=== PATIENT | male | born 1985 | race Caucasian/White ===

== ENCOUNTER 2023-05-31 18:59 | Inpatient (IN) | payer BC ==
[~2023-05-31] VITALS: Ht 180.3 cm; Wt 99.8 kg
[2023-05-31] MEDS ORDERED: NS 1,000 ML IV ONE (19:40)
[2023-05-31 20:01] LABS: WHITE BLOOD COUNT 20.3 10^3/uL (4.0-10.0)
[2023-05-31 20:02] LABS: BASO # 0.1 10^3/uL (0.0-0.2); BASO % 0.2 % (0.0-1.0); CK-MB VALUE MASS < 1.0 NG/ML (<3.6); EOS # 0.1 10^3/uL (0.0-0.5); EOS % 0.2 % (0.0-3.0); HEMOGLOBIN 10.3 g/dl (13.5-17.5); LYMPH # 1.2 10^3/uL (1.5-5.0); LYMPH % 6.1 % (24.0-44.0); MEAN CORPUSCULAR HEMOGLOBIN 31.9 pg (27.0-33.0); MEAN CORPUSCULAR HGB CONC 32.2 g/dl (32.0-36.5); MEAN CORPUSCULAR VOLUME 99.1 fl (80.0-96.0); MONO # 0.8 10^3/uL (0.0-0.8); MONO % 3.8 % (2.0-8.0); NEUTROPHILS % 88.9 % (36.0-66.0); PLATELET COUNT, AUTOMATED 231 10^3/uL (150-450); RED BLOOD COUNT 3.23 10^6/uL (4.30-6.10)
[2023-05-31 20:04] LABS: ALBUMIN 2.8 G/DL (3.2-5.2); ALKALINE PHOSPHATASE 127 U/L (46-116); ALT/SGPT 16 U/L (7.0-40); AST/SGOT 46 U/L (<34); BILIRUBIN,DIRECT 1.1 MG/DL (<0.4); BILIRUBIN,TOTAL 1.8 MG/DL (0.3-1.2); BLOOD UREA NITROGEN 20 MG/DL (9-23); CALCIUM LEVEL 8.2 MG/DL (8.5-10.1); CARBON DIOXIDE LEVEL 19 MMOL/L (20-31); CHLORIDE LEVEL 108 MMOL/L (98-107); CPK CREATINE PHOSPHOKINASE 35 U/L (46-171); CREATININE FOR GFR 0.74 MG/DL (0.70-1.30); GLOMERULAR FILTRATION RATE > 60.0 (>60); GLUCOSE, FASTING 162 MG/DL (60-100); MB/CK RELATIVE INDEX 2.85 (< OR =4); POTASSIUM SERUM 3.6 MMOL/L (3.5-5.1); SODIUM LEVEL 140 MMOL/L (136-145); TOTAL PROTEIN 5.6 G/DL (5.7-8.2)
[2023-05-31 20:06] LABS: THYROID STIMULATING HORMONE 1.225 uIU/ML (0.55-4.78)
[2023-05-31] MEDS ORDERED: THERTAB52 PO (20:08)
[2023-05-31 20:10] LABS: INR 1.93; PROTHROMBIN TIME 21.4 SECONDS (12.5-14.5)
[2023-05-31 20:11] LABS: PROCALCITONIN 1.12 ng/ml
[2023-05-31] MEDS ORDERED: ISOVUE-370 76% 100ML VIAL As Ordered ONE (20:12)
[2023-05-31 20:37] LABS: ABG BASE EXCESS -5.7 (-2.0-2.0); ABG HCO3 18.9 MMOL/L (22.0-26.0); ABG O2 SATURATION 94.7 % (95.0-99.0); ABG PARTIAL PRESSURE O2 80.9 mmHg (75.0-100.0); ABG STANDARD HCO3 19.7 MMOL/L. (22.0-26.0); ABG pH (ARTERIAL) 7.363 UNITS (7.350-7.450)
[2023-05-31 20:57] LABS: CK-MB VALUE MASS < 1.0 NG/ML (<3.6)
[2023-05-31 20:59] LABS: CPK CREATINE PHOSPHOKINASE 32 U/L (46-171); MB/CK RELATIVE INDEX 3.12 (< OR =4)
[2023-05-31] MEDS: NS 1,000 ML IV ONE (21:12)
[2023-05-31] MEDS: cefTRIAXone SOD 1 GM in D5W MINI-BAG PLUS 50 ML IV ONE (21:12)
[2023-05-31] MEDS: AZITHROMYCIN INJ 500 MG, VIAL MATE ADAPTER 1 EACH in NS 250 ML IV ONE (21:47)
[2023-05-31] MEDS ORDERED: HOME MED LIST COMPLETE! XX SCH (22:00)
[2023-05-31] MEDS ORDERED: DEXTROSE 50% 50ML SYRINGE IV PRN (23:15)
[2023-05-31] MEDS ORDERED: GLUCAGON INJ 1MG VIAL SC PRN (23:15)
[2023-05-31] MEDS ORDERED: GLUCOSE 4GM CHEW TABLET PO PRN (23:15)
[2023-05-31] MEDS: VANCOMYCIN HCL 1,000 MG, VIAL MATE ADAPTER 1 EACH in D5W 250 ML IV ONE (23:23)
[2023-05-31] MEDS: INSULIN LISPRO (NovoLOG) PER UNIT SC SCH (23:32)
[2023-05-31] MEDS: ALBUTEROL SULFATE 2.5MG/0.5ML INH NEB SOLN NEB SCH (23:46)
[2023-06-01] VITALS (24 sets, daily range): BP systolic 97–148; BP diastolic 49–96; TEMP 96.9–99.4; O2SAT 36–100
[2023-06-01] MEDS: methylPREDNISolone 1,000 MG, VIAL MATE ADAPTER 1 EACH in NS 250 ML IV SCH (01:01)
[2023-06-01 05:57] LABS: INR 1.78; PROTHROMBIN TIME 20.1 SECONDS (12.5-14.5)
[2023-06-01 06:14] LABS: BASO % 0.3 % (0.0-1.0); EOS % 0.1 % (0.0-3.0); HEMATOCRIT 32.2 % (42.0-52.0); HEMOGLOBIN 10.3 g/dl (13.5-17.5); MEAN CORPUSCULAR HEMOGLOBIN 32.1 pg (27.0-33.0); MEAN CORPUSCULAR VOLUME 100.3 fl (80.0-96.0); MONO % 1.7 % (2.0-8.0); NEUTROPHILS % 92.4 % (36.0-66.0); PLATELET COUNT, AUTOMATED 268 10^3/uL (150-450); RED BLOOD COUNT 3.21 10^6/uL (4.30-6.10); WHITE BLOOD COUNT 21.4 10^3/uL (4.0-10.0)
[2023-06-01 06:15] LABS: BASO # 0.1 10^3/uL (0.0-0.2); LYMPH # 0.9 10^3/uL (1.5-5.0); MONO # 0.4 10^3/uL (0.0-0.8); NEUTROPHILS # 19.8 10^3/uL (1.5-8.5)
[2023-06-01 06:20] LABS: ALBUMIN 2.8 G/DL (3.2-5.2); ALKALINE PHOSPHATASE 131 U/L (46-116); ALT/SGPT 15 U/L (7.0-40); AST/SGOT 52 U/L (<34); BILIRUBIN,TOTAL 1.6 MG/DL (0.3-1.2); BLOOD UREA NITROGEN 18 MG/DL (9-23); CARBON DIOXIDE LEVEL 22 MMOL/L (20-31); CHLORIDE LEVEL 110 MMOL/L (98-107); CREATININE FOR GFR 0.71 MG/DL (0.70-1.30); GLOMERULAR FILTRATION RATE > 60.0 (>60); GLUCOSE, FASTING 129 MG/DL (60-100); MAGNESIUM LEVEL 1.8 MG/DL (1.8-2.4); PHOSPHORUS LEVEL 4.1 MG/DL (2.5-4.9); POTASSIUM SERUM 4.5 MMOL/L (3.5-5.1); SODIUM LEVEL 142 MMOL/L (136-145); TOTAL PROTEIN 5.5 G/DL (5.7-8.2)
[2023-06-01 06:27] LABS: ABG BASE EXCESS -7.8 (-2.0-2.0); ABG HCO3 19.9 MMOL/L (22.0-26.0); ABG O2 SATURATION 94.6 % (95.0-99.0); ABG PARTIAL PRESSURE CO2 50.4 mmHg (35.0-45.0); ABG PARTIAL PRESSURE O2 86.9 mmHg (75.0-100.0); ABG STANDARD HCO3 18.1 MMOL/L. (22.0-26.0); ABG TOTAL CO2 21.5 MMOL/L (22.0-29.0)
[2023-06-01 06:36] LABS: ABG pH (ARTERIAL) 7.215 UNITS (7.350-7.450)
[2023-06-01] MEDS: PANTOPRAZOLE 40MG VIAL IV SCH (08:06)
[2023-06-01] MEDS: FUROSEMIDE 20MG/2ML VIAL IV ONE (08:06)
[2023-06-01 08:52] LABS: ERYTHROCYTE SEDIMENTATION RATE 29 mm/hr (0-15)
[2023-06-01] MEDS ORDERED: NICOTINE 14 MG/24 HR TRANSDERMAL TD SCH (09:00)
[2023-06-01] MEDS: ENOXAPARIN 40MG/0.4ML SYRINGE (J1650 PER 10MG) SC SCH (09:06)
[2023-06-01 09:18] LABS: VENOUS BASE EXCESS -9.1 (-2.0-2.0); VENOUS HCO3 17.7 MMOL/L (23.0-27.0); VENOUS O2 SATURATION 99.3 % (60.0-80.0); VENOUS PARTIAL PRESSURE CO2 41.9 mmHg (38.0-50.0); VENOUS PARTIAL PRESSURE O2 222.3 mmHg (30.0-50.0); VENOUS PH 7.244 UNITS (7.330-7.430); VENOUS STANDARD HCO3 17.2 MMOL/L
[2023-06-01] MEDS: guaiFENesin ER TABLET 600 MG TAB PO SCH (13:15)
[2023-06-01 15:09] LABS: VENOUS BASE EXCESS -9.7 (-2.0-2.0); VENOUS HCO3 16.8 MMOL/L (23.0-27.0); VENOUS O2 SATURATION 99.2 % (60.0-80.0); VENOUS PARTIAL PRESSURE CO2 38.7 mmHg (38.0-50.0); VENOUS PARTIAL PRESSURE O2 215.5 mmHg (30.0-50.0); VENOUS PH 7.255 UNITS (7.330-7.430); VENOUS STANDARD HCO3 16.8 MMOL/L
[2023-06-01] MEDS: NICOTINE 14 MG/24 HR TRANSDERMAL TD SCH (18:38)
[2023-06-01] MEDS: cefTRIAXone SOD 1 GM in D5W MINI-BAG PLUS 50 ML IV SCH (20:13)
[2023-06-01] MEDS: AZITHROMYCIN INJ 500 MG, VIAL MATE ADAPTER 1 EACH in NS 250 ML IV SCH (20:14)
[2023-06-02] VITALS (28 sets, daily range): BP systolic 96–120; BP diastolic 49–59; TEMP 98.6–99.2; O2SAT 81–100
[2023-06-02 05:06] LABS: VENOUS BASE EXCESS -7.9 (-2.0-2.0); VENOUS HCO3 19.4 MMOL/L (23.0-27.0); VENOUS O2 SATURATION 87.8 % (60.0-80.0); VENOUS PARTIAL PRESSURE CO2 47.1 mmHg (38.0-50.0); VENOUS PARTIAL PRESSURE O2 60.5 mmHg (30.0-50.0); VENOUS PH 7.232 UNITS (7.330-7.430); VENOUS STANDARD HCO3 17.9 MMOL/L; VENOUS TOTAL CO2 20.8 MMOL/L (24.0-28.0)
[2023-06-02 05:13] LABS: BASO % 0.1 % (0.0-1.0); HEMATOCRIT 30.5 % (42.0-52.0); HEMOGLOBIN 9.7 g/dl (13.5-17.5); LYMPH % 7.1 % (24.0-44.0); MEAN CORPUSCULAR HEMOGLOBIN 32.1 pg (27.0-33.0); MEAN CORPUSCULAR HGB CONC 31.8 g/dl (32.0-36.5); MONO % 2.7 % (2.0-8.0); NEUTROPHILS % 88.4 % (36.0-66.0); PLATELET COUNT, AUTOMATED 276 10^3/uL (150-450); RED BLOOD COUNT 3.02 10^6/uL (4.30-6.10)
[2023-06-02 05:14] LABS: LYMPH # 1.6 10^3/uL (1.5-5.0); MONO # 0.6 10^3/uL (0.0-0.8); NEUTROPHILS # 19.4 10^3/uL (1.5-8.5)
[2023-06-02 05:37] LABS: ALBUMIN 2.9 G/DL (3.2-5.2); ALKALINE PHOSPHATASE 123 U/L (46-116); ALT/SGPT 23 U/L (7.0-40); AST/SGOT 57 U/L (<34); BILIRUBIN,TOTAL 1.2 MG/DL (0.3-1.2); BLOOD UREA NITROGEN 29 MG/DL (9-23); CALCIUM LEVEL 8.8 MG/DL (8.5-10.1); CARBON DIOXIDE LEVEL 22 MMOL/L (20-31); CHLORIDE LEVEL 107 MMOL/L (98-107); CREATININE FOR GFR 0.81 MG/DL (0.70-1.30); GLOMERULAR FILTRATION RATE > 60.0 (>60); GLUCOSE, FASTING 160 MG/DL (60-100); PHOSPHORUS LEVEL 2.8 MG/DL (2.5-4.9); POTASSIUM SERUM 3.9 MMOL/L (3.5-5.1); SODIUM LEVEL 136 MMOL/L (136-145); TOTAL PROTEIN 5.6 G/DL (5.7-8.2)
[2023-06-02] MEDS ORDERED: MIRALAX *UNIT DOSE* 17GM PACKET PO PRN (18:20)
[2023-06-02] MEDS: AZITHROMYCIN 250MG TABLET PO SCH (21:56)
[2023-06-02] MEDS: ALPRAZolam 0.5 MG TAB PO PRN (21:57)
[2023-06-02] MEDS: BENZONATATE 100MG CAPSULE PO PRN (22:29)
[2023-06-02] MEDS: METAMUCIL (PSYLLIUM) PACKET PO PRN (22:29)
[2023-06-03] VITALS (39 sets, daily range): BP systolic 97–129; BP diastolic 46–60; TEMP 98.5–99.4; O2SAT 53–100
[2023-06-03] MEDS: CHLORASEPTIC SPRAY MT PRN (02:43)
[2023-06-03 04:37] LABS: BASO % 0.1 % (0.0-1.0); HEMATOCRIT 30.7 % (42.0-52.0); HEMOGLOBIN 9.8 g/dl (13.5-17.5); LYMPH % 5.1 % (24.0-44.0); MEAN CORPUSCULAR HEMOGLOBIN 32.2 pg (27.0-33.0); MEAN CORPUSCULAR HGB CONC 31.9 g/dl (32.0-36.5); MONO # 0.6 10^3/uL (0.0-0.8); MONO % 3.2 % (2.0-8.0); NEUTROPHILS # 17.7 10^3/uL (1.5-8.5); NEUTROPHILS % 90.6 % (36.0-66.0); PLATELET COUNT, AUTOMATED 244 10^3/uL (150-450); RED BLOOD COUNT 3.04 10^6/uL (4.30-6.10); WHITE BLOOD COUNT 19.6 10^3/uL (4.0-10.0)
[2023-06-03 04:41] LABS: ERYTHROCYTE SEDIMENTATION RATE 21 mm/hr (0-15)
[2023-06-03 05:12] LABS: IMMUNOGLOBULIN A 335.4 MG/DL (40-350)
[2023-06-03 05:13] LABS: ALKALINE PHOSPHATASE 133 U/L (46-116); ALT/SGPT 21 U/L (7.0-40); AST/SGOT 59 U/L (<34); BILIRUBIN,TOTAL 1.1 MG/DL (0.3-1.2); BLOOD UREA NITROGEN 28 MG/DL (9-23); CARBON DIOXIDE LEVEL 24 MMOL/L (20-31); CHLORIDE LEVEL 107 MMOL/L (98-107); CREATININE FOR GFR 0.78 MG/DL (0.70-1.30); GLOMERULAR FILTRATION RATE > 60.0 (>60); GLUCOSE, FASTING 151 MG/DL (60-100); IMMUNOGLOBULIN G 828 MG/DL (650-1600); SODIUM LEVEL 135 MMOL/L (136-145); TOTAL PROTEIN 5.8 G/DL (5.7-8.2)
[2023-06-03 05:15] LABS: IMMUNOGLOBULIN E 19.9 IU/ML (0-378)
[2023-06-03] MEDS: FUROSEMIDE 20MG/2ML VIAL IV ONE (12:08)
[2023-06-03] MEDS: INSULIN LISPRO (NovoLOG) PER UNIT SC SCH (20:39)
[2023-06-04] VITALS (29 sets, daily range): BP systolic 96–135; BP diastolic 46–65; TEMP 97.8–99.4; O2SAT 84–98
[2023-06-04 05:42] LABS: BASO % 0.1 % (0.0-1.0); HEMATOCRIT 30.3 % (42.0-52.0); HEMOGLOBIN 9.7 g/dl (13.5-17.5); LYMPH # 0.8 10^3/uL (1.5-5.0); LYMPH % 5.1 % (24.0-44.0); MEAN CORPUSCULAR HEMOGLOBIN 31.5 pg (27.0-33.0); MEAN CORPUSCULAR VOLUME 98.4 fl (80.0-96.0); MONO # 0.5 10^3/uL (0.0-0.8); NEUTROPHILS # 14.8 10^3/uL (1.5-8.5); NEUTROPHILS % 90.9 % (36.0-66.0); PLATELET COUNT, AUTOMATED 208 10^3/uL (150-450); RED BLOOD COUNT 3.08 10^6/uL (4.30-6.10); WHITE BLOOD COUNT 16.3 10^3/uL (4.0-10.0)
[2023-06-04 05:58] LABS: ALBUMIN 2.7 G/DL (3.2-5.2); ALKALINE PHOSPHATASE 131 U/L (46-116); ALT/SGPT 24 U/L (7.0-40); AST/SGOT 56 U/L (<34); BILIRUBIN,TOTAL 1.2 MG/DL (0.3-1.2); BLOOD UREA NITROGEN 26 MG/DL (9-23); CARBON DIOXIDE LEVEL 22 MMOL/L (20-31); CHLORIDE LEVEL 106 MMOL/L (98-107); CREATININE FOR GFR 0.73 MG/DL (0.70-1.30); GLOMERULAR FILTRATION RATE > 60.0 (>60); GLUCOSE, FASTING 164 MG/DL (60-100); POTASSIUM SERUM 3.4 MMOL/L (3.5-5.1); SODIUM LEVEL 138 MMOL/L (136-145); TOTAL PROTEIN 5.7 G/DL (5.7-8.2)
[2023-06-04] MEDS: KCL 10MEQ/100ML SWI (KRUN) 10 MEQ in IV 1 EA IV ONE (06:17)
[2023-06-04] MEDS: INSULIN LISPRO (NovoLOG) PER UNIT SC SCH (09:07)
[2023-06-04 14:57] LABS: VENOUS BASE EXCESS -7.1 (-2.0-2.0); VENOUS HCO3 18.3 MMOL/L (23.0-27.0); VENOUS O2 SATURATION 90.6 % (60.0-80.0); VENOUS PARTIAL PRESSURE CO2 36.4 mmHg (38.0-50.0); VENOUS PARTIAL PRESSURE O2 62.6 mmHg (30.0-50.0); VENOUS STANDARD HCO3 18.6 MMOL/L; VENOUS TOTAL CO2 19.5 MMOL/L (24.0-28.0)
[2023-06-04] MEDS: FUROSEMIDE 40MG/4ML VIAL IV ONE (16:20)
[2023-06-04] MEDS: POTASSIUM CHLORIDE 10MEQ SR TABLET PO ONE ×2 (16:21→20:31)
[2023-06-04] MEDS: MAG SULF 1GM/100ML (MAG RUN) 1 GM in IV 1 EA IV ONE (16:22)
[2023-06-04] MEDS ORDERED: ALPRAZolam 0.25 MG TAB PO PRN (21:30)
[2023-06-04] MEDS: RAMELTEON 8 MG TAB (ROZEREM) PO PRN (21:40)
[2023-06-05] VITALS (23 sets, daily range): BP systolic 99–131; BP diastolic 51–60; TEMP 97.7–99.1; O2SAT 88–100
[2023-06-05 04:56] LABS: BASO % 0.1 % (0.0-1.0); HEMATOCRIT 28.4 % (42.0-52.0); HEMOGLOBIN 9.4 g/dl (13.5-17.5); LYMPH # 0.8 10^3/uL (1.5-5.0); LYMPH % 6.4 % (24.0-44.0); MEAN CORPUSCULAR HEMOGLOBIN 32.1 pg (27.0-33.0); MEAN CORPUSCULAR HGB CONC 33.1 g/dl (32.0-36.5); MEAN CORPUSCULAR VOLUME 96.9 fl (80.0-96.0); MONO # 0.3 10^3/uL (0.0-0.8); MONO % 2.5 % (2.0-8.0); NEUTROPHILS # 11.5 10^3/uL (1.5-8.5); NEUTROPHILS % 90.3 % (36.0-66.0); PLATELET COUNT, AUTOMATED 170 10^3/uL (150-450); RED BLOOD COUNT 2.93 10^6/uL (4.30-6.10); WHITE BLOOD COUNT 12.7 10^3/uL (4.0-10.0)
[2023-06-05 05:00] LABS: ERYTHROCYTE SEDIMENTATION RATE 7 mm/hr (0-15)
[2023-06-05 05:27] LABS: ALBUMIN 2.6 G/DL (3.2-5.2); ALKALINE PHOSPHATASE 141 U/L (46-116); ALT/SGPT 32 U/L (7.0-40); AST/SGOT 61 U/L (<34); BILIRUBIN,TOTAL 1.2 MG/DL (0.3-1.2); BLOOD UREA NITROGEN 25 MG/DL (9-23); CALCIUM LEVEL 8.5 MG/DL (8.5-10.1); CARBON DIOXIDE LEVEL 23 MMOL/L (20-31); CHLORIDE LEVEL 106 MMOL/L (98-107); GLOMERULAR FILTRATION RATE > 60.0 (>60); GLUCOSE, FASTING 184 MG/DL (60-100); POTASSIUM SERUM 3.6 MMOL/L (3.5-5.1); SODIUM LEVEL 136 MMOL/L (136-145); TOTAL PROTEIN 5.5 G/DL (5.7-8.2)
[2023-06-05] MEDS ORDERED: POTASSIUM CHLORIDE 10MEQ SR TABLET PO SCH (06:00)
[2023-06-05] MEDS: POTASSIUM CHLORIDE 10MEQ SR TABLET PO ONE ×3 (09:38→17:32)
[2023-06-05] MEDS: FUROSEMIDE 40MG/4ML VIAL IV ONE (09:38)
[2023-06-05] MEDS: MAG SULF 1GM/100ML (MAG RUN) 1 GM in IV 1 EA IV ONE (09:39)
[2023-06-05 18:32] LABS: BLOOD UREA NITROGEN 24 MG/DL (9-23); CALCIUM LEVEL 8.6 MG/DL (8.5-10.1); CARBON DIOXIDE LEVEL 24 MMOL/L (20-31); CHLORIDE LEVEL 106 MMOL/L (98-107); GLOMERULAR FILTRATION RATE > 60.0 (>60); GLUCOSE, FASTING 204 MG/DL (60-100); MAGNESIUM LEVEL 1.8 MG/DL (1.8-2.4); POTASSIUM SERUM 3.5 MMOL/L (3.5-5.1); SODIUM LEVEL 136 MMOL/L (136-145)
[2023-06-06] VITALS (17 sets, daily range): BP systolic 98–129; BP diastolic 53–59; TEMP 97.7–98.5; O2SAT 88–98
[2023-06-06 05:37] LABS: BASO % 0.1 % (0.0-1.0); HEMOGLOBIN 9.5 g/dl (13.5-17.5); LYMPH # 0.8 10^3/uL (1.5-5.0); LYMPH % 5.9 % (24.0-44.0); MEAN CORPUSCULAR HEMOGLOBIN 31.3 pg (27.0-33.0); MEAN CORPUSCULAR HGB CONC 32.8 g/dl (32.0-36.5); MEAN CORPUSCULAR VOLUME 95.4 fl (80.0-96.0); MONO # 0.7 10^3/uL (0.0-0.8); NEUTROPHILS # 12.5 10^3/uL (1.5-8.5); NEUTROPHILS % 87.9 % (36.0-66.0); PLATELET COUNT, AUTOMATED 165 10^3/uL (150-450); RED BLOOD COUNT 3.04 10^6/uL (4.30-6.10); WHITE BLOOD COUNT 14.2 10^3/uL (4.0-10.0)
[2023-06-06 06:12] LABS: BLOOD UREA NITROGEN 21 MG/DL (9-23); CALCIUM LEVEL 8.5 MG/DL (8.5-10.1); CARBON DIOXIDE LEVEL 25 MMOL/L (20-31); CHLORIDE LEVEL 105 MMOL/L (98-107); CREATININE FOR GFR 0.65 MG/DL (0.70-1.30); GLOMERULAR FILTRATION RATE > 60.0 (>60); GLUCOSE, FASTING 163 MG/DL (60-100); MAGNESIUM LEVEL 1.8 MG/DL (1.8-2.4); POTASSIUM SERUM 3.7 MMOL/L (3.5-5.1); SODIUM LEVEL 139 MMOL/L (136-145)
[2023-06-06] MEDS: methylPREDNISolone 500 MG, VIAL MATE ADAPTER 1 EACH in NS 250 ML IV SCH (08:32)
[2023-06-06] MEDS: POTASSIUM CHLORIDE 10MEQ SR TABLET PO ONE ×3 (10:16→21:00)
[2023-06-06] MEDS: FUROSEMIDE 40MG/4ML VIAL IV ONE (10:17)
[2023-06-06] MEDS: MAG SULF 1GM/100ML (MAG RUN) 1 GM in IV 1 EA IV ONE (10:17)
[2023-06-06 17:38] LABS: BLOOD UREA NITROGEN 25 MG/DL (9-23); CALCIUM LEVEL 8.4 MG/DL (8.5-10.1); CARBON DIOXIDE LEVEL 23 MMOL/L (20-31); CHLORIDE LEVEL 106 MMOL/L (98-107); CREATININE FOR GFR 0.69 MG/DL (0.70-1.30); GLOMERULAR FILTRATION RATE > 60.0 (>60); GLUCOSE, FASTING 297 MG/DL (60-100); MAGNESIUM LEVEL 1.8 MG/DL (1.8-2.4); POTASSIUM SERUM 3.5 MMOL/L (3.5-5.1); SODIUM LEVEL 136 MMOL/L (136-145)
[2023-06-07] VITALS (10 sets, daily range): BP systolic 110–125; BP diastolic 53–62; TEMP 98–98.6; O2SAT 88–94
[2023-06-07] MEDS ORDERED: PREPARATION H OINTMENT (HEMORRHOID) PR PRN (04:30)
[2023-06-07 05:36] LABS: BASO % 0.1 % (0.0-1.0); HEMATOCRIT 30.9 % (42.0-52.0); HEMOGLOBIN 10.3 g/dl (13.5-17.5); LYMPH # 0.7 10^3/uL (1.5-5.0); LYMPH % 3.8 % (24.0-44.0); MEAN CORPUSCULAR HEMOGLOBIN 31.5 pg (27.0-33.0); MEAN CORPUSCULAR HGB CONC 33.3 g/dl (32.0-36.5); MEAN CORPUSCULAR VOLUME 94.5 fl (80.0-96.0); MONO # 0.9 10^3/uL (0.0-0.8); NEUTROPHILS # 15.6 10^3/uL (1.5-8.5); NEUTROPHILS % 89.8 % (36.0-66.0); PLATELET COUNT, AUTOMATED 189 10^3/uL (150-450); RED BLOOD COUNT 3.27 10^6/uL (4.30-6.10); WHITE BLOOD COUNT 17.3 10^3/uL (4.0-10.0)
[2023-06-07 05:59] LABS: BLOOD UREA NITROGEN 23 MG/DL (9-23); CALCIUM LEVEL 8.6 MG/DL (8.5-10.1); CARBON DIOXIDE LEVEL 24 MMOL/L (20-31); CHLORIDE LEVEL 107 MMOL/L (98-107); CREATININE FOR GFR 0.65 MG/DL (0.70-1.30); GLOMERULAR FILTRATION RATE > 60.0 (>60); GLUCOSE, FASTING 155 MG/DL (60-100); MAGNESIUM LEVEL 1.8 MG/DL (1.8-2.4); POTASSIUM SERUM 3.5 MMOL/L (3.5-5.1); SODIUM LEVEL 136 MMOL/L (136-145)
[2023-06-07] MEDS: MAG SULF 1GM/100ML (MAG RUN) 1 GM in IV 1 EA IV ONE (09:55)
[2023-06-07] MEDS: POTASSIUM CHLORIDE 10MEQ SR TABLET PO ONE ×3 (09:55→20:39)
[2023-06-07] MEDS: FUROSEMIDE 40MG/4ML VIAL IV ONE (09:55)
[2023-06-08] VITALS (10 sets, daily range): BP systolic 101–131; BP diastolic 51–59; TEMP 98.2–99.2; O2SAT 88–96
[2023-06-08 05:11] LABS: BASO % 0.1 % (0.0-1.0); HEMATOCRIT 30.6 % (42.0-52.0); HEMOGLOBIN 10.1 g/dl (13.5-17.5); LYMPH # 0.6 10^3/uL (1.5-5.0); LYMPH % 3.6 % (24.0-44.0); MEAN CORPUSCULAR HEMOGLOBIN 31.2 pg (27.0-33.0); MEAN CORPUSCULAR VOLUME 94.4 fl (80.0-96.0); MONO # 0.8 10^3/uL (0.0-0.8); MONO % 4.8 % (2.0-8.0); NEUTROPHILS % 90.4 % (36.0-66.0); PLATELET COUNT, AUTOMATED 164 10^3/uL (150-450); RED BLOOD COUNT 3.24 10^6/uL (4.30-6.10); WHITE BLOOD COUNT 16.6 10^3/uL (4.0-10.0)
[2023-06-08 05:34] LABS: BLOOD UREA NITROGEN 24 MG/DL (9-23); CALCIUM LEVEL 8.1 MG/DL (8.5-10.1); CARBON DIOXIDE LEVEL 25 MMOL/L (20-31); CHLORIDE LEVEL 103 MMOL/L (98-107); CREATININE FOR GFR 0.68 MG/DL (0.70-1.30); GLOMERULAR FILTRATION RATE > 60.0 (>60); GLUCOSE, FASTING 235 MG/DL (60-100); IRON (FE) 47 UG/DL (65-175); MAGNESIUM LEVEL 1.8 MG/DL (1.8-2.4); PERCENT SATURATION 18.4 % (19.7-50.0); POTASSIUM SERUM 3.8 MMOL/L (3.5-5.1); SODIUM LEVEL 137 MMOL/L (136-145); TOTAL IRON BINDING CAPACITY 255 UG/DL (250-425)
[2023-06-08 05:36] LABS: FERRITIN 156.6 NG/ML (10.5-307.3)
[2023-06-08 06:03] LABS: HEPATITIS B SURFACE ANTIBODY NEGATIVE (POSITIVE)
[2023-06-08 06:36] LABS: HEPATITIS C VIRUS ABY INDEX 0.03 INDEX (<0.8)
[2023-06-08] MEDS: predniSONE 20 MG TAB PO SCH (09:09)
[2023-06-08] MEDS: MAG SULF 1GM/100ML (MAG RUN) 1 GM in IV 1 EA IV ONE (09:10)
[2023-06-08] MEDS: FUROSEMIDE 20MG/2ML VIAL IV ONE (09:11)
[2023-06-09] VITALS (24 sets, daily range): BP systolic 109–116; BP diastolic 53–57; TEMP 98.5–99; O2SAT 90–99
[2023-06-09] MEDS ORDERED: FUROSEMIDE 20MG/2ML VIAL IV ONE (10:05)
[2023-06-09 10:28] LABS: BASO % 0.1 % (0.0-1.0); EOS # 0.3 10^3/uL (0.0-0.5); EOS % 1.6 % (0.0-3.0); HEMATOCRIT 32.1 % (42.0-52.0); HEMOGLOBIN 10.5 g/dl (13.5-17.5); LYMPH # 1.5 10^3/uL (1.5-5.0); LYMPH % 7.2 % (24.0-44.0); MEAN CORPUSCULAR HEMOGLOBIN 31.3 pg (27.0-33.0); MEAN CORPUSCULAR HGB CONC 32.7 g/dl (32.0-36.5); MEAN CORPUSCULAR VOLUME 95.5 fl (80.0-96.0); MONO # 1.1 10^3/uL (0.0-0.8); MONO % 5.4 % (2.0-8.0); NEUTROPHILS # 17.8 10^3/uL (1.5-8.5); NEUTROPHILS % 84.9 % (36.0-66.0); PLATELET COUNT, AUTOMATED 144 10^3/uL (150-450); RED BLOOD COUNT 3.36 10^6/uL (4.30-6.10); WHITE BLOOD COUNT 20.9 10^3/uL (4.0-10.0)
[2023-06-09 10:37] LABS: ERYTHROCYTE SEDIMENTATION RATE 1 mm/hr (0-15)
[2023-06-09] MEDS: FUROSEMIDE 40MG/4ML VIAL IV ONE (10:38)
[2023-06-09] MEDS: MAG SULF 1GM/100ML (MAG RUN) 1 GM in IV 1 EA IV ONE (10:38)
[2023-06-09 10:53] LABS: ALBUMIN 2.4 G/DL (3.2-5.2); ALKALINE PHOSPHATASE 166 U/L (46-116); ALT/SGPT 53 U/L (7.0-40); AST/SGOT 68 U/L (<34); BILIRUBIN,TOTAL 1.6 MG/DL (0.3-1.2); BLOOD UREA NITROGEN 20 MG/DL (9-23); CALCIUM LEVEL 8.1 MG/DL (8.5-10.1); CARBON DIOXIDE LEVEL 25 MMOL/L (20-31); CHLORIDE LEVEL 105 MMOL/L (98-107); CREATININE FOR GFR 0.69 MG/DL (0.70-1.30); GLOMERULAR FILTRATION RATE > 60.0 (>60); GLUCOSE, FASTING 175 MG/DL (60-100); POTASSIUM SERUM 3.8 MMOL/L (3.5-5.1); SODIUM LEVEL 136 MMOL/L (136-145)
[2023-06-09] MEDS: CEFEPIME HCL 2 GM in D5W MINI-BAG PLUS 50 ML IV SCH (12:48)
[2023-06-09] MEDS: POTASSIUM CHLORIDE 10MEQ SR TABLET PO ONE ×2 (12:49→17:46)
[2023-06-09] MEDS ORDERED: CEFEPIME HCL 2 GM in D5W MINI-BAG PLUS 50 ML IV SCH (13:00)
[2023-06-10] VITALS (24 sets, daily range): BP systolic 104–116; BP diastolic 51–58; TEMP 98.9–99.9; O2SAT 86–99
[2023-06-10 04:31] LABS: BASO % 0.1 % (0.0-1.0); EOS # 0.4 10^3/uL (0.0-0.5); EOS % 2.5 % (0.0-3.0); HEMATOCRIT 29.5 % (42.0-52.0); HEMOGLOBIN 9.9 g/dl (13.5-17.5); LYMPH # 1.4 10^3/uL (1.5-5.0); LYMPH % 8.2 % (24.0-44.0); MEAN CORPUSCULAR HEMOGLOBIN 31.3 pg (27.0-33.0); MEAN CORPUSCULAR HGB CONC 33.6 g/dl (32.0-36.5); MEAN CORPUSCULAR VOLUME 93.4 fl (80.0-96.0); MONO # 0.9 10^3/uL (0.0-0.8); MONO % 5.3 % (2.0-8.0); NEUTROPHILS # 14.1 10^3/uL (1.5-8.5); NEUTROPHILS % 83.2 % (36.0-66.0); PLATELET COUNT, AUTOMATED 139 10^3/uL (150-450); RED BLOOD COUNT 3.16 10^6/uL (4.30-6.10); WHITE BLOOD COUNT 16.9 10^3/uL (4.0-10.0)
[2023-06-10 05:36] LABS: ALBUMIN 2.4 G/DL (3.2-5.2); ALKALINE PHOSPHATASE 152 U/L (46-116); ALT/SGPT 51 U/L (7.0-40); AST/SGOT 58 U/L (<34); BILIRUBIN,TOTAL 1.7 MG/DL (0.3-1.2); BLOOD UREA NITROGEN 17 MG/DL (9-23); CALCIUM LEVEL 7.8 MG/DL (8.5-10.1); CARBON DIOXIDE LEVEL 26 MMOL/L (20-31); CHLORIDE LEVEL 107 MMOL/L (98-107); CREATININE FOR GFR 0.68 MG/DL (0.70-1.30); GLOMERULAR FILTRATION RATE > 60.0 (>60); GLUCOSE, FASTING 147 MG/DL (60-100); MAGNESIUM LEVEL 1.7 MG/DL (1.8-2.4); PHOSPHORUS LEVEL 2.4 MG/DL (2.5-4.9); POTASSIUM SERUM 3.8 MMOL/L (3.5-5.1); SODIUM LEVEL 139 MMOL/L (136-145); TOTAL PROTEIN 4.7 G/DL (5.7-8.2)
[2023-06-10] MEDS: MAG SULF 1GM/100ML (MAG RUN) 1 GM in IV 1 EA IV ONE (06:51)
[2023-06-10] MEDS: SIMETHICONE 80MG CHEW TAB PO SCH (10:41)
[2023-06-10] MEDS: predniSONE 10MG TAB PO SCH (10:41)
[2023-06-10] MEDS: K-PHOS NEUTRAL 250MG TABLET (SOD.PHOSPHATE/POT.PHOSPHATE) PO SCH (10:41)
[2023-06-10] MEDS: dexmedeTOMidine 200 MCG in IV 1 EA IV SCH (13:38)
[2023-06-10] MEDS: SIMETHICONE 80MG CHEW TAB PO PRN (17:41)
[2023-06-10 18:11] LABS: ALPHA 1 ANTITRYPSIN 194 mg/dL (95-164); ANTI-MITOCHONDRIAL ANTIBODY <20.0 Units (0.0-20.0); HEPATITIS B CORE ANTIBODY IGG Negative (Negative)
[2023-06-11] VITALS (81 sets, daily range): BP systolic 79–155; BP diastolic 38–85; TEMP 97.3–99.2; O2SAT 78–97
[2023-06-11] MEDS: MAG SULF 1GM/100ML (MAG RUN) 1 GM in IV 1 EA IV ONE (07:58)
[2023-06-11 08:29] LABS: EOS # 0.3 10^3/uL (0.0-0.5); EOS % 2.2 % (0.0-3.0); HEMATOCRIT 28.3 % (42.0-52.0); HEMOGLOBIN 9.5 g/dl (13.5-17.5); LYMPH # 0.7 10^3/uL (1.5-5.0); LYMPH % 5.7 % (24.0-44.0); MEAN CORPUSCULAR HEMOGLOBIN 31.8 pg (27.0-33.0); MEAN CORPUSCULAR HGB CONC 33.6 g/dl (32.0-36.5); MEAN CORPUSCULAR VOLUME 94.6 fl (80.0-96.0); MONO # 0.7 10^3/uL (0.0-0.8); MONO % 5.3 % (2.0-8.0); NEUTROPHILS # 11.2 10^3/uL (1.5-8.5); NEUTROPHILS % 86.1 % (36.0-66.0); PLATELET COUNT, AUTOMATED 130 10^3/uL (150-450); RED BLOOD COUNT 2.99 10^6/uL (4.30-6.10)
[2023-06-11 08:58] LABS: ALBUMIN 2.2 G/DL (3.2-5.2); ALKALINE PHOSPHATASE 140 U/L (46-116); ALT/SGPT 42 U/L (7.0-40); AST/SGOT 52 U/L (<34); BLOOD UREA NITROGEN 18 MG/DL (9-23); CARBON DIOXIDE LEVEL 27 MMOL/L (20-31); CHLORIDE LEVEL 108 MMOL/L (98-107); CREATININE FOR GFR 0.61 MG/DL (0.70-1.30); GLOMERULAR FILTRATION RATE > 60.0 (>60); GLUCOSE, FASTING 121 MG/DL (60-100); PHOSPHORUS LEVEL 3.2 MG/DL (2.5-4.9); POTASSIUM SERUM 4.6 MMOL/L (3.5-5.1); SODIUM LEVEL 141 MMOL/L (136-145); TOTAL PROTEIN 4.5 G/DL (5.7-8.2)
[2023-06-11] MEDS: MIDAZOLAM INJ 2MG/2ML VIAL IV SCH (09:43)
[2023-06-11] MEDS: ROCURONIUM BROMIDE 50MG/5ML VIAL IV SCH (09:45)
[2023-06-11] MEDS: ETOMIDATE INJ 20MG/10ML VIAL IV STA (09:47)
[2023-06-11] MEDS ORDERED: FENTANYL DRIP LOCK BOX KEY 1 EACH XX PRN (09:55)
[2023-06-11] MEDS: MIDAZOLAM INJ 2MG/2ML VIAL IV STA (09:58)
[2023-06-11] MEDS ORDERED: MIDAZOLAM 5MG/ML 1ML VIAL As Ordered ONE (09:59)
[2023-06-11] MEDS: MIDAZOLAM 100MG/100ML-0.9%NACL 100 MG in IV 1 EA IV SCH (10:00)
[2023-06-11] MEDS: fentaNYL CITRATE/NaCl 1,000 MCG in IV 1 EA IV SCH (10:00)
[2023-06-11] MEDS ORDERED: PROPOFOL 1,000 MG/100 ML VIAL As Ordered ONE (10:04)
[2023-06-11] MEDS: ROCURONIUM BROMIDE 50MG/5ML VIAL IV STA ×2 (10:27→11:06)
[2023-06-11] MEDS ORDERED: CISATRACURIUM 200 MG in NS 480 ML IV SCH (10:50)
[2023-06-11] MEDS: CISATRACURIUM 200 MG in NS 480 ML IV SCH (11:23)
[2023-06-11 12:08] LABS: ANTINUCLEAR ANTIBODIES DIRECT Negative (Negative)
[2023-06-11 12:09] LABS: ABG HCO3 25.6 MMOL/L (22.0-26.0); ABG O2 SATURATION 86.6 % (95.0-99.0); ABG PARTIAL PRESSURE O2 74.8 mmHg (75.0-100.0); ABG STANDARD HCO3 17.8 MMOL/L. (22.0-26.0); ABG TOTAL CO2 28.9 MMOL/L (22.0-29.0)
[2023-06-11 12:10] LABS: ABG PARTIAL PRESSURE CO2 109.1 mmHg (35.0-45.0); ABG pH (ARTERIAL) 6.988 UNITS (7.350-7.450)
[2023-06-11] MEDS: propofoL 1,000 MG in IV 1 EA IV SCH (12:55)
[2023-06-11 13:29] LABS: ABG BASE EXCESS -11.3 (-2.0-2.0); ABG HCO3 24.2 MMOL/L (22.0-26.0); ABG O2 SATURATION 92.1 % (95.0-99.0); ABG STANDARD HCO3 15.5 MMOL/L. (22.0-26.0); ABG TOTAL CO2 28.2 MMOL/L (22.0-29.0)
[2023-06-11 13:30] LABS: ABG PARTIAL PRESSURE CO2 129.8 mmHg (35.0-45.0); ABG pH (ARTERIAL) 6.888 UNITS (7.350-7.450)
[2023-06-11] MEDS ORDERED: SODIUM BICARBONATE 8.4% INJ 50ML SYRINGE As Ordered ONE (13:45)
[2023-06-11] MEDS: SODIUM BICARBONATE 8.4% INJ 50ML SYRINGE IV STA ×3 (13:50)
[2023-06-11] MEDS: NOREPINEPHRINE 4MG IN D5 250ML 4 MG in IV 1 EA IV SCH (13:55)
[2023-06-11 15:21] LABS: ABG BASE EXCESS -4.5 (-2.0-2.0); ABG HCO3 24.7 MMOL/L (22.0-26.0); ABG O2 SATURATION 89.6 % (95.0-99.0); ABG PARTIAL PRESSURE O2 65.5 mmHg (75.0-100.0); ABG STANDARD HCO3 20.6 MMOL/L. (22.0-26.0); ABG TOTAL CO2 26.8 MMOL/L (22.0-29.0)
[2023-06-11 15:27] LABS: ABG pH (ARTERIAL) 7.176 UNITS (7.350-7.450)
[2023-06-11 15:28] LABS: ABG PARTIAL PRESSURE CO2 68.4 mmHg (35.0-45.0)
[2023-06-11 17:55] LABS: ABG BASE EXCESS -3.1 (-2.0-2.0); ABG HCO3 26.8 MMOL/L (22.0-26.0); ABG O2 SATURATION 92.7 % (95.0-99.0); ABG PARTIAL PRESSURE O2 74.3 mmHg (75.0-100.0); ABG STANDARD HCO3 21.8 MMOL/L. (22.0-26.0); ABG TOTAL CO2 29.2 MMOL/L (22.0-29.0)
[2023-06-11 17:57] LABS: ABG PARTIAL PRESSURE CO2 76.3 mmHg (35.0-45.0); ABG pH (ARTERIAL) 7.164 UNITS (7.350-7.450)
[2023-06-11 18:13] LABS: HEMATOCRIT 32.5 % (42.0-52.0); HEMOGLOBIN 10.4 g/dl (13.5-17.5); PLATELET COUNT, AUTOMATED 223 10^3/uL (150-450); RED BLOOD COUNT 3.25 10^6/uL (4.30-6.10)
[2023-06-11 18:27] LABS: WHITE BLOOD COUNT 43.1 10^3/uL (4.0-10.0)
[2023-06-11 18:35] LABS: CPK CREATINE PHOSPHOKINASE 55 U/L (46-171)
[2023-06-11 18:38] LABS: ALBUMIN 2.5 G/DL (3.2-5.2); ALKALINE PHOSPHATASE 152 U/L (46-116); ALT/SGPT 41 U/L (7.0-40); AST/SGOT 48 U/L (<34); BILIRUBIN,TOTAL 1.7 MG/DL (0.3-1.2); BLOOD UREA NITROGEN 19 MG/DL (9-23); CALCIUM LEVEL 8.1 MG/DL (8.5-10.1); CARBON DIOXIDE LEVEL 31 MMOL/L (20-31); CHLORIDE LEVEL 106 MMOL/L (98-107); CREATININE FOR GFR 0.79 MG/DL (0.70-1.30); GLOMERULAR FILTRATION RATE > 60.0 (>60); GLUCOSE, FASTING 132 MG/DL (60-100); MAGNESIUM LEVEL 2.1 MG/DL (1.8-2.4); PHOSPHORUS LEVEL 5.6 MG/DL (2.5-4.9); POTASSIUM SERUM 4.4 MMOL/L (3.5-5.1); SODIUM LEVEL 142 MMOL/L (136-145); TOTAL PROTEIN 5.1 G/DL (5.7-8.2)
[2023-06-11 19:49] LABS: ABG BASE EXCESS -0.4 (-2.0-2.0); ABG HCO3 27.1 MMOL/L (22.0-26.0); ABG O2 SATURATION 91.7 % (95.0-99.0); ABG PARTIAL PRESSURE CO2 58.1 mmHg (35.0-45.0); ABG PARTIAL PRESSURE O2 65.3 mmHg (75.0-100.0); ABG STANDARD HCO3 24.1 MMOL/L. (22.0-26.0); ABG TOTAL CO2 28.8 MMOL/L (22.0-29.0); ABG pH (ARTERIAL) 7.286 UNITS (7.350-7.450)
[2023-06-11] MEDS: MULTIVITAMIN -ADULT INJECTION 10 ML, THIAMINE INJection 100 MG, FOLIC ACID 1 MG in NS 1... IV ONE (20:41)
[2023-06-11] MEDS: dexAMETHasone 20MG/5ML VIAL IV ONE (22:36)
[2023-06-12] VITALS (100 sets, daily range): BP systolic 100–143; BP diastolic 41–65; TEMP 98.2–99.6; O2SAT 82–97
[2023-06-12] LABS: ABG BASE EXCESS -0.3 (-2.0-2.0); ABG O2 SATURATION 95.7 % (95.0-99.0); ABG PARTIAL PRESSURE CO2 57.1 mmHg (35.0-45.0); ABG PARTIAL PRESSURE O2 82.8 mmHg (75.0-100.0); ABG STANDARD HCO3 24.2 MMOL/L. (22.0-26.0); ABG TOTAL CO2 28.7 MMOL/L (22.0-29.0); ABG pH (ARTERIAL) 7.292 UNITS (7.350-7.450)
[2023-06-12] MEDS: ALBUTEROL SULFATE 2.5MG/0.5ML INH NEB SOLN NEB PRN (00:20)
[2023-06-12 04:15] LABS: ABG BASE EXCESS -1.6 (-2.0-2.0); ABG HCO3 26.8 MMOL/L (22.0-26.0); ABG PARTIAL PRESSURE O2 74.8 mmHg (75.0-100.0); ABG STANDARD HCO3 23.1 MMOL/L. (22.0-26.0); ABG TOTAL CO2 28.8 MMOL/L (22.0-29.0)
[2023-06-12 04:20] LABS: ABG PARTIAL PRESSURE CO2 65.4 mmHg (35.0-45.0); ABG pH (ARTERIAL) 7.231 UNITS (7.350-7.450)
[2023-06-12 04:59] LABS: ALKALINE PHOSPHATASE 146 U/L (46-116); ALT/SGPT 39 U/L (7.0-40); AST/SGOT 38 U/L (<34); BILIRUBIN,TOTAL 1.4 MG/DL (0.3-1.2); BLOOD UREA NITROGEN 21 MG/DL (9-23); CALCIUM LEVEL 7.5 MG/DL (8.5-10.1); CARBON DIOXIDE LEVEL 29 MMOL/L (20-31); CHLORIDE LEVEL 108 MMOL/L (98-107); CREATININE FOR GFR 0.79 MG/DL (0.70-1.30); GLOMERULAR FILTRATION RATE > 60.0 (>60); GLUCOSE, FASTING 148 MG/DL (60-100); PHOSPHORUS LEVEL 4.9 MG/DL (2.5-4.9); POTASSIUM SERUM 5.3 MMOL/L (3.5-5.1); SODIUM LEVEL 140 MMOL/L (136-145); TOTAL PROTEIN 4.6 G/DL (5.7-8.2)
[2023-06-12 06:07] LABS: ABG BASE EXCESS -3.1 (-2.0-2.0); ABG O2 SATURATION 94.8 % (95.0-99.0); ABG PARTIAL PRESSURE O2 79.4 mmHg (75.0-100.0); ABG STANDARD HCO3 21.9 MMOL/L. (22.0-26.0); ABG TOTAL CO2 26.9 MMOL/L (22.0-29.0)
[2023-06-12 06:08] LABS: ABG PARTIAL PRESSURE CO2 60.5 mmHg (35.0-45.0); ABG pH (ARTERIAL) 7.234 UNITS (7.350-7.450)
[2023-06-12 06:13] LABS: VENOUS BASE EXCESS -2.7 (-2.0-2.0); VENOUS HCO3 25.8 MMOL/L (23.0-27.0); VENOUS O2 SATURATION 98.4 % (60.0-80.0); VENOUS PARTIAL PRESSURE CO2 64.8 mmHg (38.0-50.0); VENOUS PARTIAL PRESSURE O2 122.8 mmHg (30.0-50.0); VENOUS PH 7.218 UNITS (7.330-7.430); VENOUS STANDARD HCO3 22.2 MMOL/L; VENOUS TOTAL CO2 27.8 MMOL/L (24.0-28.0)
[2023-06-12] MEDS: FUROSEMIDE 40MG/4ML VIAL IV ONE (09:28)
[2023-06-12 10:37] LABS: ABG BASE EXCESS -2.5 (-2.0-2.0); ABG HCO3 27.5 MMOL/L (22.0-26.0); ABG O2 SATURATION 95.8 % (95.0-99.0); ABG STANDARD HCO3 22.3 MMOL/L. (22.0-26.0); ABG TOTAL CO2 29.9 MMOL/L (22.0-29.0)
[2023-06-12 10:38] LABS: ABG PARTIAL PRESSURE CO2 78.3 mmHg (35.0-45.0); ABG pH (ARTERIAL) 7.163 UNITS (7.350-7.450)
[2023-06-12 12:40] LABS: ABG BASE EXCESS -3.2 (-2.0-2.0); ABG HCO3 25.5 MMOL/L (22.0-26.0); ABG O2 SATURATION 91.3 % (95.0-99.0); ABG PARTIAL PRESSURE O2 65.9 mmHg (75.0-100.0); ABG STANDARD HCO3 21.7 MMOL/L. (22.0-26.0); ABG TOTAL CO2 27.6 MMOL/L (22.0-29.0)
[2023-06-12 12:41] LABS: ABG pH (ARTERIAL) 7.209 UNITS (7.350-7.450)
[2023-06-12 12:44] LABS: ABG PARTIAL PRESSURE CO2 65.5 mmHg (35.0-45.0)
[2023-06-12 16:31] LABS: ABG BASE EXCESS -2.5 (-2.0-2.0); ABG HCO3 25.7 MMOL/L (22.0-26.0); ABG O2 SATURATION 93.9 % (95.0-99.0); ABG PARTIAL PRESSURE CO2 61.7 mmHg (35.0-45.0); ABG PARTIAL PRESSURE O2 76.8 mmHg (75.0-100.0); ABG STANDARD HCO3 22.4 MMOL/L. (22.0-26.0); ABG TOTAL CO2 27.6 MMOL/L (22.0-29.0); ABG pH (ARTERIAL) 7.238 UNITS (7.350-7.450)
[2023-06-12] MEDS: LACRILUBE (AKWA TEARS) OPHTH OINT 3.5GM OU PRN (18:35)
[2023-06-12 18:40] LABS: BASO % 0.1 % (0.0-1.0); HEMATOCRIT 30.1 % (42.0-52.0); HEMOGLOBIN 9.4 g/dl (13.5-17.5); LYMPH # 0.9 10^3/uL (1.5-5.0); LYMPH % 5.6 % (24.0-44.0); MEAN CORPUSCULAR HEMOGLOBIN 30.6 pg (27.0-33.0); MEAN CORPUSCULAR HGB CONC 31.2 g/dl (32.0-36.5); MONO # 0.9 10^3/uL (0.0-0.8); MONO % 5.6 % (2.0-8.0); NEUTROPHILS # 13.8 10^3/uL (1.5-8.5); NEUTROPHILS % 87.8 % (36.0-66.0); PLATELET COUNT, AUTOMATED 230 10^3/uL (150-450); RED BLOOD COUNT 3.07 10^6/uL (4.30-6.10); WHITE BLOOD COUNT 15.7 10^3/uL (4.0-10.0)
[2023-06-12 19:08] LABS: ALBUMIN 2.2 G/DL (3.2-5.2); ALKALINE PHOSPHATASE 136 U/L (46-116); ALT/SGPT 35 U/L (7.0-40); AST/SGOT 30 U/L (<34); BILIRUBIN,TOTAL 1.2 MG/DL (0.3-1.2); BLOOD UREA NITROGEN 28 MG/DL (9-23); CALCIUM LEVEL 8.6 MG/DL (8.5-10.1); CARBON DIOXIDE LEVEL 30 MMOL/L (20-31); CHLORIDE LEVEL 107 MMOL/L (98-107); CREATININE FOR GFR 0.81 MG/DL (0.70-1.30); GLOMERULAR FILTRATION RATE > 60.0 (>60); GLUCOSE, FASTING 157 MG/DL (60-100); POTASSIUM SERUM 4.6 MMOL/L (3.5-5.1); SODIUM LEVEL 142 MMOL/L (136-145); TOTAL PROTEIN 4.7 G/DL (5.7-8.2)
[2023-06-12 19:25] LABS: ABG BASE EXCESS -1.8 (-2.0-2.0); ABG HCO3 25.1 MMOL/L (22.0-26.0); ABG O2 SATURATION 93.5 % (95.0-99.0); ABG PARTIAL PRESSURE CO2 52.6 mmHg (35.0-45.0); ABG PARTIAL PRESSURE O2 72.1 mmHg (75.0-100.0); ABG STANDARD HCO3 22.9 MMOL/L. (22.0-26.0); ABG TOTAL CO2 26.7 MMOL/L (22.0-29.0); ABG pH (ARTERIAL) 7.296 UNITS (7.350-7.450)
[2023-06-12 23:59] LABS: ABG BASE EXCESS -0.1 (-2.0-2.0); ABG HCO3 26.8 MMOL/L (22.0-26.0); ABG O2 SATURATION 96.1 % (95.0-99.0); ABG PARTIAL PRESSURE CO2 54.4 mmHg (35.0-45.0); ABG PARTIAL PRESSURE O2 87.5 mmHg (75.0-100.0); ABG STANDARD HCO3 24.4 MMOL/L. (22.0-26.0); ABG TOTAL CO2 28.4 MMOL/L (22.0-29.0)
[2023-06-13] VITALS (92 sets, daily range): BP systolic 91–159; BP diastolic 45–70; TEMP 98.1–99.5; O2SAT 78–94
[2023-06-13 04:39] LABS: BASO % 0.1 % (0.0-1.0); EOS % 0.2 % (0.0-3.0); HEMATOCRIT 29.3 % (42.0-52.0); HEMOGLOBIN 9.3 g/dl (13.5-17.5); LYMPH # 1.1 10^3/uL (1.5-5.0); MEAN CORPUSCULAR HEMOGLOBIN 31.4 pg (27.0-33.0); MEAN CORPUSCULAR HGB CONC 31.7 g/dl (32.0-36.5); MONO # 1.4 10^3/uL (0.0-0.8); MONO % 8.8 % (2.0-8.0); NEUTROPHILS # 13.4 10^3/uL (1.5-8.5); NEUTROPHILS % 83.3 % (36.0-66.0); PLATELET COUNT, AUTOMATED 224 10^3/uL (150-450); RED BLOOD COUNT 2.96 10^6/uL (4.30-6.10); WHITE BLOOD COUNT 16.1 10^3/uL (4.0-10.0)
[2023-06-13 05:04] LABS: ALBUMIN 2.2 G/DL (3.2-5.2); ALKALINE PHOSPHATASE 130 U/L (46-116); ALT/SGPT 34 U/L (7.0-40); AST/SGOT 27 U/L (<34); BLOOD UREA NITROGEN 32 MG/DL (9-23); CALCIUM LEVEL 8.5 MG/DL (8.5-10.1); CARBON DIOXIDE LEVEL 32 MMOL/L (20-31); CHLORIDE LEVEL 108 MMOL/L (98-107); CREATININE FOR GFR 0.77 MG/DL (0.70-1.30); GLOMERULAR FILTRATION RATE > 60.0 (>60); GLUCOSE, FASTING 163 MG/DL (60-100); PHOSPHORUS LEVEL 3.3 MG/DL (2.5-4.9); POTASSIUM SERUM 4.5 MMOL/L (3.5-5.1); SODIUM LEVEL 144 MMOL/L (136-145); TOTAL PROTEIN 4.7 G/DL (5.7-8.2)
[2023-06-13 06:16] LABS: ABG BASE EXCESS 3.1 (-2.0-2.0); ABG HCO3 30.3 MMOL/L (22.0-26.0); ABG O2 SATURATION 95.6 % (95.0-99.0); ABG PARTIAL PRESSURE O2 79.2 mmHg (75.0-100.0); ABG STANDARD HCO3 27.2 MMOL/L. (22.0-26.0); ABG TOTAL CO2 32.2 MMOL/L (22.0-29.0); ABG pH (ARTERIAL) 7.317 UNITS (7.350-7.450)
[2023-06-13 06:18] LABS: ABG PARTIAL PRESSURE CO2 60.6 mmHg (35.0-45.0)
[2023-06-13] MEDS: FUROSEMIDE 40MG/4ML VIAL IV ONE (08:23)
[2023-06-13] MEDS ORDERED: MAG SULF 1GM/100ML (MAG RUN) 1 GM in IV 1 EA IV ONE (09:30)
[2023-06-13 11:50] LABS: ABG BASE EXCESS 2.8 (-2.0-2.0); ABG HCO3 29.8 MMOL/L (22.0-26.0); ABG O2 SATURATION 93.2 % (95.0-99.0); ABG PARTIAL PRESSURE CO2 58.2 mmHg (35.0-45.0); ABG PARTIAL PRESSURE O2 72.8 mmHg (75.0-100.0); ABG STANDARD HCO3 26.9 MMOL/L. (22.0-26.0); ABG TOTAL CO2 31.6 MMOL/L (22.0-29.0); ABG pH (ARTERIAL) 7.327 UNITS (7.350-7.450)
[2023-06-13] MEDS: dexAMETHasone 20MG/5ML VIAL IV SCH (12:02)
[2023-06-13 18:01] LABS: ABG BASE EXCESS 1.1 (-2.0-2.0); ABG HCO3 27.9 MMOL/L (22.0-26.0); ABG O2 SATURATION 89.2 % (95.0-99.0); ABG PARTIAL PRESSURE CO2 55.6 mmHg (35.0-45.0); ABG PARTIAL PRESSURE O2 60.3 mmHg (75.0-100.0); ABG STANDARD HCO3 25.3 MMOL/L. (22.0-26.0); ABG TOTAL CO2 29.6 MMOL/L (22.0-29.0); ABG pH (ARTERIAL) 7.319 UNITS (7.350-7.450)
== END 2023-06-13 23:07 | disposition short-term general hospital (02) | DRG 710 ==
LOC: M ED 18:59 → EDBD 18:59 → M ED INP 22:18 → M ICU 06-01 00:32
PROVIDERS: ADMIT Internal Medicine Pulmonary Disease; ATTEND Internal Medicine Pulmonary Disease
PROC: B246ZZZ Ultrasonography of Right and Left Heart (ICD-10-PCS; principal; 2023-06-01)
PROC: B246ZZZ Ultrasonography of Right and Left Heart (ICD-10-PCS; 2023-06-06)
PROC: 03HY32Z Insertion of Monitoring Device into Upper Artery, Percutaneous Approach (ICD-10-PCS; 2023-06-11)
PROC: 5A1945Z Respiratory Ventilation, 24-96 Consecutive Hours (ICD-10-PCS; 2023-06-11)
PROC: 0BH17EZ Insertion of Endotracheal Airway into Trachea, Via Natural or Artificial Opening (ICD-10-PCS; 2023-06-11)
PROC: 06HN33Z Insertion of Infusion Device into Left Femoral Vein, Percutaneous Approach (ICD-10-PCS; 2023-06-11)
DX: A41.9 Sepsis, unspecified organism (principal); J96.01 Acute respiratory failure with hypoxia; J84.9 Interstitial pulmonary disease, unspecified; K76.6 Portal hypertension; K76.81 Hepatopulmonary syndrome; J96.02 Acute respiratory failure with hypercapnia; E87.20 Acidosis, unspecified; D68.9 Coagulation defect, unspecified; K70.31 Alcoholic cirrhosis of liver with ascites; F17.290 Nicotine dependence, other tobacco product, uncomplicated; E83.119 Hemochromatosis, unspecified; I25.10 Atherosclerotic heart disease of native coronary artery without angina pectoris; E73.9 Lactose intolerance, unspecified; R65.20 Severe sepsis without septic shock